=== PATIENT | male | born 1965 | race Caucasian/White ===

== ENCOUNTER 2017-03-04 10:43 | Emergency (ER) | payer MEDICAID ==
--- NOTE | 2017-03-04 11:59 | Emergency Department Report ---
Entered by DANIEL LUCIANO, acting as scribe for BERNIE LUNA NP. Chief Complaint: Abdominal Pain Stated Complaint: ABD PAIN Time Seen by Provider: 03/04/17 11:51 - HPI History of Present Illness: 52 year old male who is non-toxic, in no acute distress, non ill appearing presents with c/o right lower abdominal pain that began 3 days ago. Describes pain as sharp, that improved to a 8/10 after analgesic prior to arrival. Reports associated N/V, subjective fever, chills. Denies epigastric pain, chest pain, SOB. - ROS Review of Systems: Reports subjective fever, chills, right lower abdominal pain, N/V. Denies epigastric pain, chest pain, SOB. - Exam Vital Signs: Vital Signs 03/04/17 11:37 Temperature 99.2 F Pulse Rate 93 H Respiratory 18 Rate Blood Pressure 136/90 O2 Sat by Pulse 100 Oximetry Physical Exam: Constitutional: Non-toxic, NAD. Abdomen: Abdomen is non-distended, soft with tenderness to palpation right lower quadrant. Positive McBurney's point tenderness. Negative Psoas sign. Negative Vaca sign. MSE screening note: Focused history and physical exam performed. Due to findings the following was ordered: amylase, lipase, CBC, CMP, UA, CT A/ P w/ contrast ED Disposition for MSE Condition: Stable This documentation as recorded by the scribe,DANIEL LUCIANO,accurately reflects the service I personally performed and the decisions made by ,BERNIE LUNA, VANDANA.
[2017-03-04 12:23] LABS: Basophils % (Auto) 0.4 % (0.0-1.8); Eosinophils % (Auto) 0.6 % (0.0-4.3); Hematocrit 38.2 % (35.5-45.6); Hemoglobin 12.9 gm/dl (11.8-15.2); Mean Corpuscular HGB Conc 34 % (32-34); Mean Corpuscular Hemoglobin 32 pg (28-32); Mean Corpuscular Volume 95 fl (84-94); Platelet Count 270 K/mm3 (140-440); Red Blood Count 4.02 M/mm3 (3.65-5.03); Red Cell Distribution Width 12.8 % (13.2-15.2); White Blood Count 11.4 K/mm3 (4.5-11.0)
[2017-03-04 12:40] LABS: Alanine Aminotransferase 20 units/L (7-56); Albumin 4.4 g/dL (3.9-5); Albumin/Globulin Ratio 1.8 %; Alkaline Phosphatase 83 units/L (35-129); Amylase 37 units/L (27-131); Anion Gap 17 mmol/L; BUN/Creatinine Ratio 12.22; Blood Urea Nitrogen 11 mg/dL (9-20); Calcium 9.2 mg/dL (8.4-10.2); Carbon Dioxide 23 mmol/L (22-30); Glucose 111 mg/dL (75-100); Lipase 27 units/L (13-60); Potassium 3.9 mmol/L (3.6-5.0); Sodium 136 mmol/L (137-145); Total Protein 6.8 g/dL (6.3-8.2)
[2017-03-04] MEDS ORDERED: NACL 0.9% 1000 ML 1,000 ML IV ONE (17:24)
[2017-03-04] MEDS ORDERED: MORPHINE IV ONE (17:24)
--- NOTE | 2017-03-04 17:31 | Emergency Department Report ---
HPI - General Chief Complaint: Abdominal Pain Time Seen by Provider: 03/04/17 17:23 - HPI HPI: This is a 52-year-old male who presents to the emergency department with complaint of a 4 day history of right lower quadrant abdominal pain. It is associated with some nausea without vomiting, chills, subjective fever. The patient has been taking acetaminophen with some transient relief. He denies any past medical history other than hypertension and high cholesterol. He has never had any surgeries. His primary care doctor is Dr. Saez. No recent travel or sick contacts at home. The pain worsens with intra-abdominal pressure such as trying to have a bowel movement while sitting on the toilet. ED Past Medical Hx - Past Medical History Hx Hypertension: Yes Additional medical history: elevated cholestorol - Surgical History Past Surgical History?: No - Social History Smoking Status: Never Smoker Substance Use Type: None - Medications Home Medications: Home Medications Medication Instructions Recorded Confirmed Last Taken Type Ciprofloxacin HCl [Ciprofloxacin 500 mg PO BID #20 tablet 03/04/17 Unknown Rx TAB] FLUoxetine HCL [FLUoxetine] 40 mg PO QAM 03/04/17 03/04/17 Unknown History Fenofibrate [Tricor] 48 mg PO QAM 03/04/17 03/04/17 Unknown History HYDROcodone/APAP 5-325 [[place] 1 each PO Q6HR PRN #10 tablet 03/04/17 Unknown Rx 5/325] Metoprolol [Lopressor TAB] 25 mg PO QAM 03/04/17 03/04/17 Unknown History metroNIDAZOLE [Flagyl] 500 mg PO Q12HR #14 tab 03/04/17 Unknown Rx ED Review of Systems ROS: Stated complaint: ABD PAIN Other details as noted in HPI Comment: All other systems reviewed and negative Constitutional: chills, fever (subjective) Eyes: denies: eye pain, eye discharge, vision change ENT: denies: ear pain, throat pain Respiratory: no symptoms reported Cardiovascular: denies: chest pain, palpitations Gastrointestinal: abdominal pain, nausea. denies: vomiting Genitourinary: denies: urgency, dysuria Musculoskeletal: denies: back pain, joint swelling, arthralgia Skin: denies: rash, lesions Neurological: denies: headache, weakness, paresthesias Physical Exam - Physical Exam Vital Signs: Vital Signs 03/04/17 11:37 Temperature 99.2 F Pulse Rate 93 H Respiratory 18 Rate Blood Pressure 136/90 O2 Sat by Pulse 100 Oximetry Physical Exam: GENERAL: The patient is well-developed well-nourished. HEENT: Normocephalic. Atraumatic. Extraocular motions are intact. Patient has moist mucous membranes. Pupils equal reactive to light bilaterally. NECK: Supple. Trachea is midline. CHEST/LUNGS: Clear to auscultation. There is no respiratory distress noted. HEART/CARDIOVASCULAR: Regular. There is no tachycardia. There is no gallop rub or murmur. ABDOMEN: Abdomen is soft. There is tenderness to palpation to the right lower quadrant of the abdomen. No guarding or rebound tenderness. No peritoneal signs with heel strike. Patient has normal bowel sounds. There is no abdominal distention. SKIN: Skin is warm and dry. NEURO: The patient is awake, alert, and oriented. The patient is cooperative. The patient has no focal neurologic deficits. The patient has normal speech. MUSCULOSKELETAL: There is no tenderness or deformity. There is no limitation range of motion. There is no evidence of acute injury. ED Course Vital Signs 03/04/17 11:37 Temperature 99.2 F Pulse Rate 93 H Respiratory 18 Rate Blood Pressure 136/90 O2 Sat by Pulse 100 Oximetry ED Medical Decision Making - Lab Data Result diagrams: 03/04/17 12:01 03/04/17 12:01 - Radiology Data Radiology results: report reviewed CT of the abdomen and pelvis with IV contrast shows findings that are consistent with acute diverticulitis of the cecum that is near the appendix but does not appear to involve the appendix. There is no evidence of gross perforation or abscess formation. No evidence of bowel obstruction. - Medical Decision Making 52-year-old male presents with 3-4 day history of right lower quadrant abdominal pain. There is some subjective fever and nausea without vomiting. Patient's labs are mostly unremarkable. There is a mild leukocytosis but no electrolyte abnormalities, renal insufficiency and the patient has normal belly labs including bilirubin, lipase and LFTs. Physical exam the patient does have moderate tenderness to palpation to the right lower quadrant of his abdomen. A CT of the abdomen and pelvis with IV contrast was done to rule out appendicitis. There was no appendicitis but cecal diverticulitis is found. Patient was given some IV Levaquin and Flagyl here. Since the patient has reasonable labs, no fever here, improvement with pain medication, I feel that the patient would do well with an initial outpatient attempt at treatment. He will go home on a 1 week history of Flagyl, ten-day history of Cipro and will be given pain medication. He will also be given a referral for a purchasing director and encouraged to follow up with his primary care doctor, Dr. Saez. He does to return to the ER with any worsening of his abdominal pain, intractable fever or vomiting or any acute distress. - Differential Diagnosis appendicitis, diverticulitis, colitis, malignancy Critical Care Time: No Critical care attestation.: If time is entered above; I have spent that time in minutes in the direct care of this critically ill patient, excluding procedure time. ED Disposition Clinical Impression: Diverticulitis Qualifiers: Diverticulitis site: unspecified part of intestinal tract Diverticulitis bleeding: without bleeding Diverticulitis complication: without perforation or abscess Qualified Code(s): K57.92 - Diverticulitis of intestine, part unspecified, without perforation or abscess without bleeding Abdominal pain Qualifiers: Abdominal location: right lower quadrant Qualified Code(s): R10.31 - Right lower quadrant pain Disposition: DISCHARGED TO HOME OR SELFCARE Is pt being admited?: No Condition: Stable Instructions: Diverticulitis (ED), Diverticulitis Diet (ED) Additional Instructions: Please follow-up with your primary care doctor in the next few days. I given you a referral for a local purchasing director, Dr. Vasquez, in order to follow- up regarding your diverticulitis. Return to the emergency department with any intractable fever, intractable abdominal pain or any acute distress. One of the antibiotics that you have been prescribed, Flagyl, has a very bad reaction with alcohol. Do not drink any alcohol on these medications or you can expect excessive nausea, vomiting and discomfort. You've been prescribed a medication that is sedating. Therefore this medication cannot be mixed with alcohol, or taken prior to driving, working, or being responsible for children. Prescriptions: Ciprofloxacin HCl [Ciprofloxacin TAB] 500 mg PO BID #20 tablet HYDROcodone/APAP 5-325 [[place] 5/325] 1 each PO Q6HR PRN #10 tablet PRN Reason: Pain metroNIDAZOLE [Flagyl] 500 mg PO Q12HR #14 tab Referrals: BLAS SAEZ MD [Primary Care Provider] - 3-5 Days GALLIOT VASQUEZ MD [Staff Physician] - 3-5 Days Time of Disposition: 20:57 Print Language: NEPALI
--- NOTE | 2017-03-04 19:17 | Cat Scan Report ---
FINAL REPORT EXAM: CT ABDOMEN PELVIS W CON HISTORY: pain TECHNIQUE: Dynamic helical CT scan through the abdomen and pelvis during and again after intravenous injection of iodinated contrast. Images are reconstructed in the sagittal and coronal planes. Oral contrast was not given. PRIORS: None. FINDINGS: Images through the lung bases show calcified granulomas in the right lower lobe. There is mild bibasilar dependent subsegmental atelectasis. There is inflammatory fat edema posterior to the cecum surrounding a cecal diverticulum consistent with acute diverticulitis. The inflamed area is approximately 2 cm proximal to the base of the appendix. The appendix appears normal. There are a few mildly enlarged pericolonic lymph nodes, likely reactive in nature. There is diffuse colonic diverticulosis. There is no evidence of gross perforation or abscess formation. Small bowel loops are nondilated. The liver, gallbladder, pancreas, spleen and adrenal glands appear normal. There is a 1.6 x 1.0 cm cyst in the right kidney. Otherwise, the right kidney appears normal. The left kidney appears normal. The pelvic organs appear grossly normal. The stomach appears grossly within normal limits. The abdominal aorta has a normal diameter. The bones and subcutaneous soft tissues are unremarkable for age. IMPRESSION: 1. Findings are consistent with acute diverticulitis of the cecum that is near the appendix but does not appear to involve the appendix. There is no evidence of gross perforation or abscess formation. 2. There is no evidence of bowel obstruction. 3. 4. 5. 6.
[2017-03-04] MEDS ORDERED: LEVAQUIN 500MG/100ML 500 MG/100 ML BAG IV ONE (19:28)
[2017-03-04] MEDS ORDERED: MORPHINE ONE (19:34)
[2017-03-04] MEDS ORDERED: FLAGYL 500 MG/100 ML 500 MG/100 ML BAG IV SCH (20:00)
[2017-03-04 20:11] LABS: Bilirubin,Urine NEG (Negative); Blood,Urine SM (Negative); Ketones,Urine NEG (Negative); Leukocyte Esterase,Urine NEG (Negative); Nitrite,Urine NEG (Negative); Protein,Urine <15 mg/dL mg/dL (Negative); Urobilinogen,Urine < 2.0 mg/dL (<2.0)
[2017-03-04 20:58] VITALS: BP 127/84
[2017-03-04] MEDS ORDERED: FLAGYL PO ONE ×2 (21:08→21:09)
== END 2017-03-04 21:13 | disposition home or self-care (01) ==
LOC: ED 10:43
DX: K57.92 Diverticulitis of intestine, part unspecified, without perforation or abscess without bleeding (principal); I10 Essential (primary) hypertension
CPT/HCPCS: 36415; 74177; 80053; 81001; 82150; 83690; 85025; 96365; 96375; 99284; J1956; J2270; J7030; Q9967

== ENCOUNTER 2018-04-20 20:45 | Emergency (ER) | payer MEDICAID ==
[2018-04-20] MEDS ORDERED: ASPIRIN PO ONE (21:43)
[2018-04-20 22:00] LABS: Basophils % (Auto) 0.4 % (0.0-1.8); Eosinophils # (Auto) 0.3 K/mm3 (0.0-0.4); Eosinophils % (Auto) 2.5 % (0.0-4.3); Hematocrit 38.7 % (35.5-45.6); Hemoglobin 13.6 gm/dl (11.8-15.2); Lymphocytes # (Auto) 0.8 K/mm3 (1.2-5.4); Lymphocytes % (Auto) 7.8 % (13.4-35.0); Mean Corpuscular HGB Conc 35 % (32-34); Mean Corpuscular Hemoglobin 33 pg (28-32); Mean Corpuscular Volume 95 fl (84-94); Monocytes # (Auto) 0.7 K/mm3 (0.0-0.8); Monocytes % (Auto) 6.4 % (0.0-7.3); Platelet Count 270 K/mm3 (140-440); Red Blood Count 4.07 M/mm3 (3.65-5.03); Red Cell Distribution Width 12.9 % (13.2-15.2)
[2018-04-20 22:45] LABS: BUN/Creatinine Ratio 14; Blood Urea Nitrogen 11 mg/dL (9-20); Calcium 9.3 mg/dL (8.4-10.2); Hemolysis Index 11
[2018-04-21 04:25] VITALS: BP 132/78
== END 2018-04-21 04:30 | disposition left against medical advice (07) ==
LOC: ED 20:45
DX: R68.84 Jaw pain (principal); Z53.21 Procedure and treatment not carried out due to patient leaving prior to being seen by health care provider
CPT/HCPCS: 36415; 80048; 84484; 85025; 93005; 93010

== ENCOUNTER 2021-03-21 08:39 | Inpatient (IN) | payer MEDICAID ==
--- NOTE | 2021-03-21 08:46 | Event Note ---
ED Screening Note Date of service: 03/21/21 Time: 08:45 ED Screening Note: Patient complains of sudden onset of abdominal pain and vomiting Denies hematemesis/coffee-ground emesis or diarrhea Admits to sweats and chills No cough or chest pain per patient This initial assessment/diagnostic orders/clinical plan/treatment(s) is/are subject to change based on patients health status, clinical progression and re- assessment by fellow clinical providers in the ED. Further treatment and workup at subsequent clinical providers discretion. Patient/guardian urged not to elope from the ED as their condition may be serious if not clinically assessed and managed. Initial orders include: Labs
[2021-03-21 09:20] LABS: Hematocrit 43.7 % (35.5-45.6); Mean Corpuscular HGB Conc 34 % (32-34); Mean Corpuscular Volume 94 fl (84-94); Platelet Count 303 K/mm3 (140-440); Red Blood Count 4.63 M/mm3 (3.65-5.03)
[2021-03-21 09:43] LABS: Alanine Aminotransferase 35 units/L (7-56); Albumin 4.7 g/dL (3.9-5); BUN/Creatinine Ratio 14; Blood Urea Nitrogen 13 mg/dL (9-20); Calcium 9.8 mg/dL (8.4-10.2); Hemolysis Index 17
[2021-03-21 09:56] LABS: Platelet Estimate Consistent w Auto; RBC Morphology Normal; Total Cells Counted 100
[2021-03-21] MEDS ORDERED: SODIUM CHLORIDE 0.9% 1000 ML 1,000 ML IV ONE (10:01)
[2021-03-21] MEDS ORDERED: MORPHINE 4 MG/1 ML INJ IV ONE (10:01)
[2021-03-21] MEDS ORDERED: ONDANSETRON 4 MG/2 ML INJ IV ONE (10:01)
--- NOTE | 2021-03-21 10:40 | Emergency Department Report ---
HPI - General Chief Complaint: Abdominal Pain Time Seen by Provider: 03/21/21 08:45 - HPI HPI: This is a 56-year-old male presents to the emergency department with a complaint of mid to upper abdominal pain, nausea and vomiting, chills and sweats, that has been going on since about 3:30 AM this morning. Because the vomiting the patient has not taken anything for symptoms prior to presentation. He has a past medical history of hyperlipidemia and hypertension. No recent travel or sick contacts at home. The abdominal pain is currently 9 of 10 in intensity. No known aggravating or alleviating factors. His primary care physician is Dr. Andrade. ED Past Medical Hx - Past Medical History Hx Hypertension: Yes Additional medical history: elevated cholestorol - Social History Smoking Status: Never Smoker Substance Use Type: None - Medications Home Medications: Home Medications Medication Instructions Recorded Confirmed Last Taken Type Diltiazem 24Hr ER (Xr) 120 mg PO DAILY 03/21/21 03/21/21 Unknown History Simvastatin 40 mg PO DAILY 03/21/21 03/21/21 Unknown History ED Review of Systems ROS: Stated complaint: ABD PAIN Other details as noted in HPI Comment: All other systems reviewed and negative Constitutional: chills, diaphoresis. denies: fever Eyes: denies: eye pain, vision change ENT: denies: ear pain, throat pain Respiratory: denies: cough, shortness of breath Cardiovascular: denies: chest pain, palpitations Gastrointestinal: abdominal pain, nausea, vomiting Genitourinary: denies: dysuria, discharge Musculoskeletal: denies: back pain, arthralgia Skin: denies: rash, lesions Neurological: denies: headache, weakness Physical Exam - Physical Exam Vital Signs: Vital Signs 03/21/21 08:44 Temperature 98.9 F Pulse Rate 82 Respiratory 20 Rate Blood Pressure 139/102 O2 Sat by Pulse 99 Oximetry Physical Exam: GENERAL: The patient is well-developed well-nourished. HENT: Normocephalic. Atraumatic. Patient has moist mucous membranes. EYES: Extraocular motions are intact. NECK: Supple. Trachea is midline. CHEST/LUNGS: Clear to auscultation. There is no respiratory distress noted. HEART/CARDIOVASCULAR: Regular. There is no tachycardia. There is no murmur. ABDOMEN: Abdomen is soft. Mid to upper abdominal tenderness to palpation. No guarding. Patient has normal bowel sounds. SKIN: Skin is warm and dry. NEURO: The patient is awake, alert, and oriented. The patient is cooperative. The patient has no focal neurologic deficits. Normal speech. MUSCULOSKELETAL: There is no tenderness or deformity. There is no limitation range of motion. ED Course Vital Signs 03/21/21 08:44 Temperature 98.9 F Pulse Rate 82 Respiratory 20 Rate Blood Pressure 139/102 O2 Sat by Pulse 99 Oximetry - Consultations Consultation #1: 03/21/21 11:30 I spoke to the general surgeon on-call, Dr. Powers. He has requested the patient be made n.p.o., receive an NG tube while still in the emergency department, and be admitted to the hospitalist service. He will consult on this patient. ED Medical Decision Making - Lab Data Result diagrams: 03/21/21 09:07 03/21/21 09:07 Lab Results 03/21/21 03/21/21 Range/Units 09:07 09:07 WBC 12.8 H (4.5-11.0) K/mm3 RBC 4.63 (3.65-5.03) M/mm3 Hgb 15.0 (11.8-15.2) gm/dl Hct 43.7 (35.5-45.6) % MCV 94 (84-94) fl MCH 33 H (28-32) pg MCHC 34 (32-34) % RDW 13.0 L (13.2-15.2) % Plt Count 303 (140-440) K/mm3 Add Manual Diff Complete Total Counted 100 Seg Neutrophils % Product Marketing Director Seg Neuts % (Manual) 93.0 H (40.0-70.0) % Lymphocytes % (Manual) 3.0 L (13.4-35.0) % Monocytes % (Manual) 4.0 (0.0-7.3) % Nucleated RBC % Not Reportable Seg Neutrophils # Man 11.9 H (1.8-7.7) K/mm3 Band Neutrophils # 0.0 K/mm3 Lymphocytes # (Manual) 0.4 L (1.2-5.4) K/mm3 Abs React Lymphs (Man) 0.0 K/mm3 Monocytes # (Manual) 0.5 (0.0-0.8) K/mm3 Eosinophils # (Manual) 0.0 (0.0-0.4) K/mm3 Basophils # (Manual) 0.0 (0.0-0.1) K/mm3 Metamyelocytes # 0.0 K/mm3 Myelocytes # 0.0 K/mm3 Promyelocytes # 0.0 K/mm3 Blast Cells # 0.0 K/mm3 WBC Morphology Not Reportable Hypersegmented Neuts Not Reportable Hyposegmented Neuts Not Reportable Hypogranular Neuts Not Reportable Smudge Cells Not Reportable Toxic Granulation Not Reportable Toxic Vacuolation Not Reportable Dohle Bodies Not Reportable Pelger-Huet Anomaly Not Reportable Pk Rods Not Reportable Platelet Estimate Consistent w auto Clumped Platelets Not Reportable Plt Clumps, EDTA Not Reportable Large Platelets Not Reportable Giant Platelets Not Reportable Platelet Satelliting Not Reportable Plt Morphology Comment Not Reportable RBC Morphology Normal Dimorphic RBCs Not Reportable Polychromasia Not Reportable Hypochromasia Not Reportable Poikilocytosis Not Reportable Anisocytosis Not Reportable Microcytosis Not Reportable Macrocytosis Not Reportable Spherocytes Not Reportable Pappenheimer Bodies Not Reportable Sickle Cells Not Reportable Target Cells Not Reportable Tear Drop Cells Not Reportable Ovalocytes Not Reportable Helmet Cells Not Reportable [place] Bodies Not Reportable [place] Rings Not Reportable [place] Cells Not Reportable Bite Cells Not Reportable Crenated Cell Not Reportable Elliptocytes Not Reportable Acanthocytes (Spur) Not Reportable Rouleaux Not Reportable Hemoglobin C Crystals Not Reportable Schistocytes Not Reportable Malaria parasites Not Reportable Thomas Bodies Not Reportable Hem Pathologist Commnt No Sodium 141 (137-145) mmol/L Potassium 3.6 (3.6-5.0) mmol/L Chloride 99.4 (98-107) mmol/L Carbon Dioxide 22 (22-30) mmol/L Anion Gap 23 mmol/L BUN 13 (9-20) mg/dL Creatinine 0.9 (0.8-1.3) mg/dL Estimated GFR > 60 ml/min BUN/Creatinine Ratio 14 % Glucose 138 H (75-100) mg/dL Calcium 9.8 (8.4-10.2) mg/dL Total Bilirubin 0.70 (0.1-1.2) mg/dL AST 24 (5-40) units/L ALT 35 (7-56) units/L Alkaline Phosphatase 106 (35-129) units/L Total Protein 7.9 (6.3-8.2) g/dL Albumin 4.7 (3.9-5) g/dL Albumin/Globulin Ratio 1.5 % Lipase 30 (13-60) units/L - Radiology Data Radiology results: report reviewed CT ABDOMEN AND PELVIS WITH CONTRAST HISTORY: MAIN. Mid to upper abdominal pain with nausea and vomiting for the past day COMPARISON: None. TECHNIQUE: CT images of the abdomen and pelvis were obtained following administration of intravenous contrast. All CT scans at this location are performed using CT dose reduction for ALARA by means of automated exposure control. CONTRAST: 100 ml of intravenous contrast administered. FINDINGS: Lungs/bones: There is minimal biba silar atelectasis with otherwise clear lungs. No acute osseous abnormality identified. Abdomen/pelvis: There are abnormal appearing mid jejunal bowel loops which are dilated and primarily fluid-filled with several areas of angulation and bowel wall thickening/enhancement. There is no single dominant transition point, rather there is a gentle transition in the midabdomen at the level of the kidneys. No free air or abscess formation to suggest a perforation. There is hepatic steatosis with no focal mass. The gallbladder, spleen, pancreas, adrenals, right kidney, and stomach appear normal. Urinary bladder and prostate are normal with no pelvic free fluid. There are occasional colonic diverticula with no acute inflammatory change identified. The appendix is normal. Terminal ileum shows mild enhancement similar to the remaining distal small bowel but there is no dilatation. IMPRESSION: 1. Abnormal appearance of the mid jejunum as outlined above may be seen with a partial small bowel obstruction. - Medical Decision Making This patient presents to the emergency department with a complaint of abdominal pain, nausea and vomiting has been going on since about 3:30 in the morning. On examination she does have reproducible mid to upper abdominal tenderness to palpation. He was given IV fluid resuscitation, IV antiemetics and a dose of IV analgesia. Labs have been mostly unremarkable including CBC, metabolic panel, and urinalysis. He had a CT scan of the abdomen and pelvis with IV contrast that shows concern for a partial bowel obstruction in the mid jejunum. General surgery was contacted and consulted. And a nasogastric tube was placed and then was placed on low intermittent suction. The patient was accepted for admission by the hospitalist, Dr. Gambino. Critical Care Time: No Critical care attestation.: If time is entered above; I have spent that time in minutes in the direct care o f this critically ill patient, excluding procedure time. ED Disposition Clinical Impression: Small bowel obstruction Disposition: - OP ADMIT IP TO THIS HOSP Is pt being admited?: Yes Condition: Serious Time of Disposition: 15:07
--- NOTE | 2021-03-21 10:58 | Cat Scan Report ---
CT ABDOMEN AND PELVIS WITH CONTRAST HISTORY: MAIN. Mid to upper abdominal pain with nausea and vomiting for the past day COMPARISON: None. TECHNIQUE: CT images of the abdomen and pelvis were obtained following administration of intravenous contrast. All CT scans at this location are performed using CT dose reduction for ALARA by means of automated exposure control. CONTRAST: 100 ml of intravenous contrast administered. FINDINGS: Lungs/bones: There is minimal bibasilar atelectasis with otherwise clear lungs. No acute osseous abn ormality identified. Abdomen/pelvis: There are abnormal appearing mid jejunal bowel loops which are dilated and primarily fluid-filled with several areas of angulation and bowel wall thickening/enhancement. There is no sin gle dominant transition point, rather there is a gentle transition in the midabdomen at the level of the kidneys. No free air or abscess formation to suggest a perforation. There is hepatic steatosis with no focal mass. The gallbladder, spleen, pancreas, adrenals, right kid martha, and stomach appear normal. Urinary bladder and prostate are normal with no pelvic free fluid. There are occasional colonic diver ticula with no acute inflammatory change identified. The appendix is normal. Terminal ileum shows mil d enhancement similar to the remaining distal small bowel but there is no dilatation. IMPRESSION: 1. Abnormal appearance of the mid jejunum as outlined above may be seen with a partial small bowel ob struction. Signer Name: Jose Armando Gonzalez MD Signed: 03/21/2021 10:53 AM Workstation Name: [id number]
[2021-03-21] MEDS ORDERED: ACETAMINOPHEN 325 MG TAB PO PRN (11:41)
[2021-03-21] MEDS ORDERED: ALBUTEROL 2.5 MG/3 ML NEBU IH PRN (11:41)
--- NOTE | 2021-03-21 11:44 | History and Physical Report ---
History of Present Illness Chief complaint: My stomach hurts History of present illness: 56 YO Male with HLD, HTN presents to ED for evaluation. Patient reports "my stomach hurts". Patient states that he has experienced abdominal pain that began at approximately 0330 hrs. Patient states that pain awakened him from sleep. Patient states that pain is 9/10, constant, without aggravating or alleviating factors. Patient acknowledges nausea, as well as multiple episodes of vomiting. Patient transported via private vehicle to [facility] for further care and evaluation of the aforementioned symptoms. The patient was seen and evaluated in the emergency department. All lab and imaging studies reviewed. Patient underwent CT scan of the abdomen and pelvis and was found to have evidence of a partial small bowel obstruction as well as laboratory findings consistent with systemic inflammatory response syndrome. Patient admitted to surgical floor and initiated on bowel rest as well as IV fluid resuscitation therapy. Surgical team consulted in ED. Patient is pending surgical evaluation/intervention at this time. Patient denies fever, chills, chest pain, palpitation, productive cough, skin rash, recent ill contact, ingestion of food/water from new or different sources, trauma, or known exposure to COVID-19. No prior admission for review. All medication listed at time of admission has been reconciled. Past History Past Medical History: hypertension, hyperlipidemia Past Surgical History: No surgical history, Other (Reviewed) Social history: . denies: smoking, alcohol abuse, prescription drug abuse Family history: diabetes, hypertension Medications and Allergies Allergies Allergy/AdvReac Type Severity Reaction Status Date / Time No Known Allergies Allergy Verified 03/21/21 08:46 Home Medications Medication Instructions Recorded Confirmed Last Taken Type Ciprofloxacin HCl [Ciprofloxacin 500 mg PO BID #20 tablet 03/04/17 Unknown Rx TAB] FLUoxetine HCL [FLUoxetine] 40 mg PO QAM 03/04/17 03/04/17 Unknown History Fenofibrate [Tricor] 48 mg PO QAM 03/04/17 03/04/17 Unknown History HYDROcodone/APAP 5-325 [[place] 1 each PO Q6HR PRN #10 tablet 03/04/17 Unknown Rx 5/325] Metoprolol [Lopressor TAB] 25 mg PO QAM 03/04/17 03/04/17 Unknown History metroNIDAZOLE [Flagyl] 500 mg PO Q12HR #14 tab 03/04/17 Unknown Rx Active Meds: Active Medications Acetaminophen (Acetaminophen 325 Mg Tab) 650 mg PO Q4H PRN PRN Reason: Pain MILD(1-3)/Fever >100.5/BILLS Albuterol (Albuterol 2.5 Mg/3 Ml Nebu) 2.5 mg IH Q4HRT PRN PRN Reason: Shortness Of Breath Fenofibrate (Fenofibrate 48 Mg Tab) 48 mg PO QAM [facility] Sodium Chloride (Nacl 0.9% 1000 Ml) 1,000 mls @ 250 mls/hr IV ONCE ONE Stop: 03/21/21 14:00 Last Admin: 03/21/21 10:25 Dose: 250 mls/hr Documented by: Metoprolol Tartrate (Metoprolol Tartrate 25 Mg Tab) 25 mg PO QAM [facility] Miscellaneous Medication (Fluoxetine Hcl [Fluoxetine]) 40 mg PO QAM [facility] Morphine Sulfate (Morphine 4 Mg/1 Ml Inj) 2 mg IV Q6H PRN PRN Reason: Pain , Severe (7-10) Ondansetron HCl (Ondansetron 4 Mg/2 Ml Inj) 4 mg IV Q8H PRN PRN Reason: Nausea And Vomiting Sodium Chloride (Sodium Chloride 0.9% 10 Ml Flush Syringe) 10 ml IV BID MUSHTAQ Sodium Chloride (Sodium Chloride 0.9% 10 Ml Flush Syringe) 10 ml IV PRN PRN PRN Reason: LINE FLUSH Review of Systems Constitutional: no weight loss, no weight gain, no fever Ears, nose, mouth and throat: no ear pain, no ear discharge, no tinnitis, no decreased hearing, no nose pain, no nasal congestion Cardiovascular: no palpitations, no rapid/irregular heart beat, no syncope, no l ightheadedness Respiratory: no cough, no cough with sputum, no excessive sputum Gastrointestinal: abdominal pain, nausea, vomiting, no diarrhea, no BRBPR, no melena, no hematochezia, no loss of appetite Genitourinary Male: no dysuria, no hematuria, no flank pain, no discharge, no urinary frequency, no urinary hesitancy Rectal: no pain, no incontinence, no bleeding Musculoskeletal: no arm numbness/tingling, no shooting leg pain, no leg numbness/tingling, no redness of joints Integumentary: no rash, no pruritis, no redness, no sores Neurological: no head injury, no parathesias, no numbness, no tingling, no syncope, no tremors Psychiatric: no anxiety, no memory loss, no change in sleep habits, no hypersomnia, no change in libido, no suicidal ideation Endocrine: no cold intolerance, no polyphagia, no polydipsia, no polyuria Hematologic/Lymphatic: no easy bruising, no easy bleeding, no lymphedema Allergic/Immunologic: no allergic rhinitis, no angioedema Exam - Constitutional Vitals: Temp Pulse Resp BP Pulse Ox 98.9 F 82 20 139/102 99 03/21/21 08:44 03/21/21 08:44 03/21/21 08:44 03/21/21 08:44 03/21/21 08:44 General appearance: Present: mild distress - EENT Eyes: Present: PERRL ENT: hearing intact, clear oral mucosa - Neck Neck: Present: supple, normal ROM - Respiratory Respiratory effort: normal Respiratory: bilateral: CTA - Cardiovascular Heart Sounds: Present: S1 & S2. Absent: rub, click - Extremities Extremities: pulses symmetrical, No edema Peripheral Pulses: within normal limits - Abdominal General gastrointestinal: Present: soft, non-tender, tender, normal bowel sounds . Absent: hepatomegaly, splenomegaly, mass, hernia Localized gastrointestinal: tender: diffuse Male genitourinary: Present: normal - Integumentary Integumentary: Present: clear, warm, dry - Musculoskeletal Musculoskeletal: gait normal, strength equal bilaterally - Psychiatric Psychiatric: appropriate mood/affect, intact judgment & insight - Neurologic Neurologic: CNII-XII intact, moves all extremities Results - Labs CBC & Chem 7: 03/21/21 09:07 03/21/21 09:07 Labs: Abnormal lab results 03/21/21 03/21/21 Range/Units 09:07 09:07 WBC 12.8 H (4.5-11.0) K/mm3 MCH 33 H (28-32) pg RDW 13.0 L (13.2-15.2) % Seg Neuts % (Manual) 93.0 H (40.0-70.0) % Lymphocytes % (Manual) 3.0 L (13.4-35.0) % Seg Neutrophils # Man 11.9 H (1.8-7.7) K/mm3 Lymphocytes # (Manual) 0.4 L (1.2-5.4) K/mm3 Glucose 138 H (75-100) mg/dL Assessment and Plan - Patient Problems (1) Small bowel obstruction Current Visit: Yes Status: Acute Plan to address problem: Bowel rest, IV fluid resuscitation therapy, CT scan abdomen and pelvis, surgery team consulted. Patient is pending surgical intervention. NG tube as per surgical team. (2) SIRS (systemic inflammatory response syndrome) Current Visit: Yes Status: Acute Plan to address problem: Empirical IV antibiotic therapy, IV fluid resuscitation therapy, CBC, repeat CBC in a.m. (3) Hypertension Current Visit: Yes Status: Acute Qualifiers: Hypertension type: essential hypertension Qualified Code(s): I10 - Essential (primary) hypertension Plan to address problem: Monitor blood pressure every shift, continue Medical management (4) Hyperlipidemia Current Visit: Yes Status: Acute Qualifiers: Hyperlipidemia type: mixed hyperlipidemia Qualified Code(s): E78.2 - Mixed hyperlipidemia Plan to address problem: Low-cholesterol diet, supportive care. (5) DVT prophylaxis Current Visit: Yes Status: Acute Plan to address problem: SCD to bilateral lower extremities while in bed, patient is ambulatory.
[2021-03-21 11:59] LABS: Amorphous Crystals,Urine Few; Bilirubin,Urine NEG (Negative); Blood,Urine NEG (Negative); Color,Urine Yellow (Yellow); Mucus,Urine 3+ /HPF; Urobilinogen,Urine < 2.0 mg/dL (<2.0)
[2021-03-21] MEDS ORDERED: LIDOCAINE VISCOUS 2% 15 ML ORAL LIQD PO ONE (13:00)
--- NOTE | 2021-03-21 13:32 | Consultation ---
History of Present Illness Consult date: 03/21/21 Reason for consult: abdominal pain - History of present illness History of present illness: 56 yo male with onset of epigastric pain, nausea and vomiting earlier this morning. He denies melena, hematochezia, hematemesis or prior h/o similar pain. He has never had abdominal surgery and denies any h/o hernia. No contacts with similar symptoms. Past History Past Medical History: hypertension, hyperlipidemia Medications and Allergies Allergies Allergy/AdvReac Type Severity Reaction Status Date / Time No Known Allergies Allergy Verified 03/21/21 08:46 Home Medications Medication Instructions Recorded Confirmed Last Taken Type Diltiazem 24Hr ER (Xr) 120 mg PO DAILY 03/21/21 03/21/21 Unknown History Simvastatin 40 mg PO DAILY 03/21/21 03/21/21 Unknown History Active Meds: Active Medications Acetaminophen (Acetaminophen 325 Mg Tab) 650 mg PO Q4H PRN PRN Reason: Pain MILD(1-3)/Fever >100.5/BILLS Albuterol (Albuterol 2.5 Mg/3 Ml Nebu) 2.5 mg IH Q4HRT PRN PRN Reason: Shortness Of Breath Fenofibrate (Fenofibrate 48 Mg Tab) 48 mg PO QAM MUSHTAQ Fluoxetine HCl (Fluoxetine 20 Mg Cap) 40 mg PO QAM MUSHTAQ Sodium Chloride (Nacl 0.9% 1000 Ml) 1,000 mls @ 250 mls/hr IV ONCE ONE Stop: 03/21/21 14:00 Last Admin: 03/21/21 10:25 Dose: 250 mls/hr Documented by: Metoprolol Succinate (Metoprolol Succinate Xl 25 Mg Tab) 25 mg PO QAM MUSHTAQ Morphine Sulfate (Morphine 4 Mg/1 Ml Inj) 2 mg IV Q6H PRN PRN Reason: Pain , Severe (7-10) Ondansetron HCl (Ondansetron 4 Mg/2 Ml Inj) 4 mg IV Q8H PRN PRN Reason: Nausea And Vomiting Sodium Chloride (Sodium Chloride 0.9% 10 Ml Flush Syringe) 10 ml IV BID MUSHTAQ Sodium Chloride (Sodium Chloride 0.9% 10 Ml Flush Syringe) 10 ml IV PRN PRN PRN Reason: LINE FLUSH Review of Systems All systems: negative (none) Exam Vital Signs Temp Pulse Resp BP Pulse Ox 98.9 F 82 20 139/102 99 03/21/21 08:44 03/21/21 08:44 03/21/21 08:44 03/21/21 08:44 03/21/21 08:44 - General physical appearance Positive: well developed, well nourished, no distress - Eyes Positive: PERRL, normal occular movement - ENT Positive: normal pinna, normal nares, normal mucosa, no hearing loss, no congestion - Neck Positive: no masses, no bruits, trachea midline, no venous distension - Respiratory Positive: normal expansion, normal respiratory effort, clear to auscultation - Cardiovascular Rhythm: regular Heart Sounds: Present: S1 & S2. Absent: rub, click - Extremities Extremities: no ischemia, pulses symmetrical, No edema - Breasts Breasts: normal, no mass, no skin changes - Abdomen Abdomen: Present: soft, bowel sounds normal. Absent: tender, distended Hernia: none - Genitourinary Male Genitourinary: normal Female Genitourinary: normal - Integumentary no rash, no growths, no abnormal pigmentation - Neurologic Neurologic: alert and oriented to time, place and person, motor strength and sensation are grossly intact - Musculoskeletal normal gait, normal posture - Psychiatric Psychiatric: appropriate mood/affect, intact judgment & insight Results - Labs 03/21/21 09:07 03/21/21 09:07 Abnormal lab results 03/21/21 03/21/21 03/21/21 Range/Units 09:07 09:07 Unknown WBC 12.8 H (4.5-11.0) K/mm3 MCH 33 H (28-32) pg RDW 13.0 L (13.2-15.2) % Seg Neuts % (Manual) 93.0 H (40.0-70.0) % Lymphocytes % (Manual) 3.0 L (13.4-35.0) % Seg Neutrophils # Man 11.9 H (1.8-7.7) K/mm3 Lymphocytes # (Manual) 0.4 L (1.2-5.4) K/mm3 Glucose 138 H (75-100) mg/dL Urine pH 8.0 H (5.0-7.0) Diabetes panel 03/21/21 Range/Units 09:07 Sodium 141 (137-145) mmol/L Potassium 3.6 (3.6-5.0) mmol/L Chloride 99.4 (98-107) mmol/L Carbon Dioxide 22 (22-30) mmol/L BUN 13 (9-20) mg/dL Creatinine 0.9 (0.8-1.3) mg/dL Glucose 138 H (75-100) mg/dL Calcium 9.8 (8.4-10.2) mg/dL AST 24 (5-40) units/L ALT 35 (7-56) units/L Alkaline Phosphatase 106 (35-129) units/L Total Protein 7.9 (6.3-8.2) g/dL Albumin 4.7 (3.9-5) g/dL Calcium panel 03/21/21 Range/Units 09:07 Calcium 9.8 (8.4-10.2) mg/dL Albumin 4.7 (3.9-5) g/dL Pituitary panel 03/21/21 Range/Units 09:07 Sodium 141 (137-145) mmol/L Potassium 3.6 (3.6-5.0) mmol/L Chloride 99.4 (98-107) mmol/L Carbon Dioxide 22 (22-30) mmol/L BUN 13 (9-20) mg/dL Creatinine 0.9 (0.8-1.3) mg/dL Glucose 138 H (75-100) mg/dL Calcium 9.8 (8.4-10.2) mg/dL Adrenal panel 03/21/21 Range/Units 09:07 Sodium 141 (137-145) mmol/L Potassium 3.6 (3.6-5.0) mmol/L Chloride 99.4 (98-107) mmol/L Carbon Dioxide 22 (22-30) mmol/L BUN 13 (9-20) mg/dL Creatinine 0.9 (0.8-1.3) mg/dL Glucose 138 H (75-100) mg/dL Calcium 9.8 (8.4-10.2) mg/dL Total Bilirubin 0.70 (0.1-1.2) mg/dL AST 24 (5-40) units/L ALT 35 (7-56) units/L Alkaline Phosphatase 106 (35-129) units/L Total Protein 7.9 (6.3-8.2) g/dL Albumin 4.7 (3.9-5) g/dL - Imaging CT scan - abdomen: report reviewed CT scan - pelvis: report reviewed Assessment and Plan - Patient Problems (1) Small bowel obstruction Current Visit: Yes Status: Acute Plan to address problem: 1) NG decompression, IVF, NPO, AXR and repeat CBC/BMP in the am 2) RUQ US
[2021-03-21] MEDS: ONDANSETRON 4 MG/2 ML INJ IV PRN (14:40)
[2021-03-21] MEDS: MORPHINE 4 MG/1 ML INJ IV PRN ×2 (14:40→21:32)
--- NOTE | 2021-03-21 16:47 | Ultrasound Report ---
ULTRASOUND ABDOMEN, LIMITED (RIGHT UPPER QUADRANT) INDICATION: epigastric pain, N/V. COMPARISON: None available. FINDINGS: Pancreas: Visualized portion shows no significant abnormality. Liver: Increased echogenicity within the liver Gallbladder: Normal. Bile ducts: Normal. Common Bile Duct measures 4 mm. Free fluid: None. Additional Findings: None. IMPRESSION: 1. Diffuse liver disease, fatty infiltration. Signer Name: Matheus Lynne MD Signed: 03/21/2021 4:42 PM Workstation Name: [id number]
[2021-03-21] MEDS: PRAVASTATIN 80 MG TAB PO SCH (21:49)
[2021-03-22 05:47] LABS: Basophils % (Auto) 0.2 % (0.0-1.8); Eosinophils # (Auto) 0.1 K/mm3 (0.0-0.4); Hematocrit 40.1 % (35.5-45.6); Lymphocytes % (Auto) 10.6 % (13.4-35.0); Mean Corpuscular HGB Conc 35 % (32-34); Mean Corpuscular Volume 95 fl (84-94); Monocytes # (Auto) 0.7 K/mm3 (0.0-0.8); Monocytes % (Auto) 7.4 % (0.0-7.3); Platelet Count 257 K/mm3 (140-440); Red Blood Count 4.22 M/mm3 (3.65-5.03); Red Cell Distribution Width 12.7 % (13.2-15.2)
[2021-03-22 05:55] LABS: Alanine Aminotransferase 23 units/L (7-56); Albumin 4.2 g/dL (3.9-5); BUN/Creatinine Ratio 12; Blood Urea Nitrogen 11 mg/dL (9-20); Calcium 8.5 mg/dL (8.4-10.2); Hemolysis Index 11
[2021-03-22] MEDS: MORPHINE 4 MG/1 ML INJ IV PRN ×3 (06:12→21:01)
[2021-03-22] MEDS: D5W/0.45% NACL 1,000 ML IV SCH ×2 (06:28→18:03)
--- NOTE | 2021-03-22 09:59 | XRay Report ---
ABDOMEN 2 VIEWS INDICATION / CLINICAL INFORMATION: nausea and vomiting. COMPARISON: None available. FINDINGS: Nasogastric tubes in good position with its tip in the stomach BOWEL: No dilated bowel. FREE AIR / EXTRALUMINAL GAS: None seen. CALCIFICATIONS: No significant abnormal calcifications. ADDITIONAL FINDINGS: None. LUNGS: Visualized lungs show no significant abnormality. SKELETAL STRUCTURES: No significant abnormality. IMPRESSION: 1. No significant abnormality. Signer Name: Matheus Lynne MD Signed: 03/22/2021 9:55 AM Workstation Name: [email or web address]
[2021-03-22] MEDS ORDERED: FLUoxetine 20 MG CAP PO SCH (10:00)
[2021-03-22] MEDS ORDERED: METOPROLOL SUCCINATE XL 25 MG TAB PO SCH (10:00)
[2021-03-22] MEDS ORDERED: DILTIAZEM 120 MG PO SCH (10:00)
[2021-03-22] MEDS ORDERED: FENOFIBRATE 48 MG TAB PO SCH (10:00)
[2021-03-22] MEDS ORDERED: NON-FORMULARY EACH (Simvastatin [Simvastatin] 40 MG Tablet) PO SCH (10:00)
[2021-03-22] MEDS ORDERED: METOPROLOL TARTRATE 25 MG TAB PO SCH (10:00)
[2021-03-22] MEDS ORDERED: FLUOXETINE HCL 40 MG PO SCH (10:00)
[2021-03-22] MEDS: dilTIAZem CD 120 MG CAP PO SCH (10:03)
--- NOTE | 2021-03-22 11:36 | Progress Note ---
Assessment and Plan Assessment and plan: # Small bowel obstruction Bowel rest IV fluid resuscitation therapy NPO except for ice chips General surgery consulted US abdomen - no cholelithiasis #SIRS Empirical IV antibiotic therapy, IV fluid resuscitation therapy, CBC, repeat CBC in a.m. #HTN Monitor blood pressure every shift, continue Medical management #HLD Low-cholesterol diet, supportive care. #DVT ppx Heparin SC History Interval history: 03/22. Patient seen and examined at bedside. Has NG tube connected to suction. Surgery following. Hospitalist Physical - Physical exam Narrative exam: VITAL SIGNS: Reviewed. GENERAL: Awake HEAD: No signs of head trauma. EYES: Pupils are equal. Extraocular motions intact. MOUTH: Oropharynx is normal. NECK: No adenopathy, no JVD. CHEST: Chest with diminished breath sounds bilaterally. No wheezes, rales, or rhonchi. CARDIAC: normal S1 and S2, without murmurs, gallops, or rubs. ABDOMEN: Soft, BS + MUSCULOSKELETAL: No edema NEUROLOGIC EXAM: Alert and oriented x3. No focal neurologic deficits SKIN: No obvious lesions - Constitutional Vitals: Temp Pulse Resp BP Pulse Ox 98.3 F 78 16 136/91 96 03/22/21 11:20 03/22/21 11:20 03/22/21 11:20 03/22/21 11:20 03/22/21 11:20 General appearance: Present: mild distress Results - Labs CBC & Chem 7: 03/22/21 05:19 03/22/21 05:19 Labs: Laboratory Last Values WBC 9.5 K/mm3 (4.5-11.0) 03/22/21 05:19 RBC 4.22 M/mm3 (3.65-5.03) 03/22/21 05:19 Hgb 14.0 gm/dl (11.8-15.2) 03/22/21 05:19 Hct 40.1 % (35.5-45.6) 03/22/21 05:19 MCV 95 fl (84-94) H 03/22/21 05:19 MCH 33 pg (28-32) H 03/22/21 05:19 MCHC 35 % (32-34) H 03/22/21 05:19 RDW 12.7 % (13.2-15.2) L 03/22/21 05:19 Plt Count 257 K/mm3 (140-440) 03/22/21 05:19 Lymph % (Auto) 10.6 % (13.4-35.0) L 03/22/21 05:19 [place] % (Auto) 7.4 % (0.0-7.3) H 03/22/21 05:19 Eos % (Auto) 1.0 % (0.0-4.3) 03/22/21 05:19 Baso % (Auto) 0.2 % (0.0-1.8) 03/22/21 05:19 Lymph # (Auto) 1.0 K/mm3 (1.2-5.4) L 03/22/21 05:19 [place] # (Auto) 0.7 K/mm3 (0.0-0.8) 03/22/21 05:19 Eos # (Auto) 0.1 K/mm3 (0.0-0.4) 03/22/21 05:19 Baso # (Auto) 0.0 K/mm3 (0.0-0.1) 03/22/21 05:19 Add Manual Diff Complete 03/21/21 09:07 Total Counted 100 03/21/21 09:07 Seg Neutrophils % 80.8 % (40.0-70.0) H 03/22/21 05:19 Seg Neuts % (Manual) 93.0 % (40.0-70.0) H 03/21/21 09:07 Lymphocytes % (Manual) 3.0 % (13.4-35.0) L 03/21/21 09:07 Monocytes % (Manual) 4.0 % (0.0-7.3) 03/21/21 09:07 Nucleated RBC % Not Reportable 03/21/21 09:07 Seg Neutrophils # 7.7 K/mm3 (1.8-7.7) 03/22/21 05:19 Seg Neutrophils # Man 11.9 K/mm3 (1.8-7.7) H 03/21/21 09:07 Band Neutrophils # 0.0 K/mm3 03/21/21 09:07 Lymphocytes # (Manual) 0.4 K/mm3 (1.2-5.4) L 03/21/21 09:07 Abs React Lymphs (Man) 0.0 K/mm3 03/21/21 09:07 Monocytes # (Manual) 0.5 K/mm3 (0.0-0.8) 03/21/21 09:07 Eosinophils # (Manual) 0.0 K/mm3 (0.0-0.4) 03/21/21 09:07 Basophils # (Manual) 0.0 K/mm3 (0.0-0.1) 03/21/21 09:07 Metamyelocytes # 0.0 K/mm3 03/21/21 09:07 Myelocytes # 0.0 K/mm3 03/21/21 09:07 Promyelocytes # 0.0 K/mm3 03/21/21 09:07 Blast Cells # 0.0 K/mm3 03/21/21 09:07 WBC Morphology Not Reportable 03/21/21 09:07 Hypersegmented Neuts Not Reportable 03/21/21 09:07 Hyposegmented Neuts Not Reportable 03/21/21 09:07 Hypogranular Neuts Not Reportable 03/21/21 09:07 Smudge Cells Not Reportable 03/21/21 09:07 Toxic Granulation Not Reportable 03/21/21 09:07 Toxic Vacuolation Not Reportable 03/21/21 09:07 Dohle Bodies Not Reportable 03/21/21 09:07 Pelger-Huet Anomaly Not Reportable 03/21/21 09:07 Pk Rods Not Reportable 03/21/21 09:07 Platelet Estimate Consistent w auto 03/21/21 09:07 Clumped Platelets Not Reportable 03/21/21 09:07 Plt Clumps, EDTA Not Reportable 03/21/21 09:07 Large Platelets Not Reportable 03/21/21 09:07 Giant Platelets Not Reportable 03/21/21 09:07 Platelet Satelliting Not Reportable 03/21/21 09:07 Plt Morphology Comment Not Reportable 03/21/21 09:07 RBC Morphology Normal 03/21/21 09:07 Dimorphic RBCs Not Reportable 03/21/21 09:07 Polychromasia Not Reportable 03/21/21 09:07 Hypochromasia Not Reportable 03/21/21 09:07 Poikilocytosis Not Reportable 03/21/21 09:07 Anisocytosis Not Reportable 03/21/21 09:07 Microcytosis Not Reportable 03/21/21 09:07 Macrocytosis Not Reportable 03/21/21 09:07 Spherocytes Not Reportable 03/21/21 09:07 Pappenheimer Bodies Not Reportable 03/21/21 09:07 Sickle Cells Not Reportable 03/21/21 09:07 Target Cells Not Reportable 03/21/21 09:07 Tear Drop Cells Not Reportable 03/21/21 09:07 Ovalocytes Not Reportable 03/21/21 09:07 Helmet Cells Not Reportable 03/21/21 09:07 Goodson-Stanberry Bodies Not Reportable 03/21/21 09:07 [place] Rings Not Reportable 03/21/21 09:07 Devora Cells Not Reportable 03/21/21 09:07 Bite Cells Not Reportable 03/21/21 09:07 Crenated Cell Not Reportable 03/21/21 09:07 Elliptocytes Not Reportable 03/21/21 09:07 Acanthocytes (Spur) Not Reportable 03/21/21 09:07 Rouleaux Not Reportable 03/21/21 09:07 Hemoglobin C Crystals Not Reportable 03/21/21 09:07 Schistocytes Not Reportable 03/21/21 09:07 Malaria parasites Not Reportable 03/21/21 09:07 Thomas Bodies Not Reportable 03/21/21 09:07 Hem Pathologist Commnt No 03/21/21 09:07 Sodium 141 mmol/L (137-145) 03/22/21 05:19 Potassium 3.9 mmol/L (3.6-5.0) 03/22/21 05:19 Chloride 104.6 mmol/L (98-107) 03/22/21 05:19 Carbon Dioxide 26 mmol/L (22-30) 03/22/21 05:19 Anion Gap 14 mmol/L 03/22/21 05:19 BUN 11 mg/dL (9-20) 03/22/21 05:19 Creatinine 0.9 mg/dL (0.8-1.3) 03/22/21 05:19 Estimated GFR > 60 ml/min 03/22/21 05:19 BUN/Creatinine Ratio 12 % 03/22/21 05:19 Glucose 100 mg/dL (75-100) 03/22/21 05:19 Calcium 8.5 mg/dL (8.4-10.2) 03/22/21 05:19 Total Bilirubin 0.80 mg/dL (0.1-1.2) 03/22/21 05:19 AST 16 units/L (5-40) 03/22/21 05:19 ALT 23 units/L (7-56) 03/22/21 05:19 Alkaline Phosphatase 85 units/L (35-129) 03/22/21 05:19 Total Protein 7.0 g/dL (6.3-8.2) 03/22/21 05:19 Albumin 4.2 g/dL (3.9-5) 03/22/21 05:19 Albumin/Globulin Ratio 1.5 % 03/22/21 05:19 Lipase 30 units/L (13-60) 03/21/21 09:07 Urine Color Yellow (Yellow) 03/21/21 14:28 Urine Turbidity Hazy (Clear) 03/21/21 14:28 Urine pH 8.0 (5.0-7.0) H 03/21/21 14:28 Ur Specific [place] 1.021 (1.003-1.030) 03/21/21 14:28 Urine Protein 30 mg/dl mg/dL (Negative) 03/21/21 14:28 Urine Glucose (UA) Neg mg/dL (Negative) 03/21/21 14:28 Urine Ketones Tr mg/dL (Negative) 03/21/21 14:28 Urine Blood Neg (Negative) 03/21/21 14:28 Urine Nitrite Neg (Negative) 03/21/21 14:28 Urine Bilirubin Neg (Negative) 03/21/21 14:28 Urine Urobilinogen < 2.0 mg/dL (<2.0) 03/21/21 14:28 Ur Leukocyte Esterase Neg (Negative) 03/21/21 14:28 Urine WBC (Auto) 6.0 /HPF (0.0-6.0) 03/21/21 14:28 Urine RBC (Auto) 7.0 /HPF (0.0-6.0) 03/21/21 14:28 U Epithel Cells (Auto) < 1.0 /HPF (0-13.0) 03/21/21 14:28 Amorphous Crystals Few 03/21/21 14:28 Urine Mucus 3+ /HPF 03/21/21 14:28 Singh/IV: Voiding Method Urinal Active Medications - Current Medications Current Medications: Generic Name Dose Route Start Last Admin Trade Name Freq PRN Reason Stop Dose Admin Acetaminophen 650 mg 03/21/21 11:41 Acetaminophen 325 Mg Tab PO Q4H PRN Pain MILD(1-3)/Fever >100.5/BILLS Diltiazem HCl 120 mg 03/22/21 10:00 03/22/21 10:03 Diltiazem Cd 120 Mg Cap PO 120 mg QDAY MUSHTAQ Administration Dextrose/Sodium Chloride 1,000 mls @ 100 mls/hr 03/22/21 07:00 03/22/21 06:28 D5/0.45ns IV 100 mls/hr DIRECT MUSHTAQ Administration Morphine Sulfate 2 mg 03/21/21 11:41 03/22/21 06:12 Morphine 4 Mg/1 Ml Inj IV 2 mg Q6H PRN Administration Pain , Severe (7-10) Ondansetron HCl 4 mg 03/21/21 11:41 03/21/21 14:40 Ondansetron 4 Mg/2 Ml Inj IV 4 mg Q8H PRN Administration Nausea And Vomiting Pravastatin Sodium 80 mg 03/21/21 22:00 03/21/21 21:49 Pravastatin 80 Mg Tab PO Not Given QHS MUSHTAQ Sodium Chloride 10 ml 03/21/21 22:00 03/22/21 10:04 Sodium Chloride 0.9% 10 Ml Flush Syringe IV 10 ml BID MUSHTAQ Administration Sodium Chloride 10 ml 03/21/21 11:41 03/22/21 06:13 Sodium Chloride 0.9% 10 Ml Flush Syringe IV 10 ml PRN PRN Administration LINE FLUSH
--- NOTE | 2021-03-22 18:54 | Progress Note ---
Assessment and Plan - Patient Problems (1) Small bowel obstruction Current Visit: Yes Status: Acute Plan to address problem: 1) Improving 2) DC NG 3) CLD Subjective Date of service: 03/22/21 Patient Reports: Positive: no new complaints, feels better, flatus, no bowel movement (Denies further abdominal pain.) Objective Vital Signs - 12hr 03/22/21 03/22/21 03/22/21 09:22 10:03 11:20 Temperature 98.3 F Pulse Rate 89 78 Respiratory 16 Rate Blood Pressure 110/79 Blood Pressure 136/91 [Right] O2 Sat by Pulse 97 96 Oximetry 03/22/21 16:25 Temperature 98.6 F Pulse Rate 75 Respiratory 17 Rate Blood Pressure Blood Pressure 135/86 [Right] O2 Sat by Pulse 98 Oximetry - Abdomen [id number] 4, [id number] 6, [id number] 8 Hernia: none - Labs 03/22/21 05:19 03/22/21 05:19 Diabetes panel 03/22/21 Range/Units 05:19 Sodium 141 (137-145) mmol/L Potassium 3.9 (3.6-5.0) mmol/L Chloride 104.6 (98-107) mmol/L Carbon Dioxide 26 (22-30) mmol/L BUN 11 (9-20) mg/dL Creatinine 0.9 (0.8-1.3) mg/dL Glucose 100 (75-100) mg/dL Calcium 8.5 (8.4-10.2) mg/dL AST 16 (5-40) units/L ALT 23 (7-56) units/L Alkaline Phosphatase 85 (35-129) units/L Total Protein 7.0 (6.3-8.2) g/dL Albumin 4.2 (3.9-5) g/dL Calcium panel 03/22/21 Range/Units 05:19 Calcium 8.5 (8.4-10.2) mg/dL Albumin 4.2 (3.9-5) g/dL Pituitary panel 03/22/21 Range/Units 05:19 Sodium 141 (137-145) mmol/L Potassium 3.9 (3.6-5.0) mmol/L Chloride 104.6 (98-107) mmol/L Carbon Dioxide 26 (22-30) mmol/L BUN 11 (9-20) mg/dL Creatinine 0.9 (0.8-1.3) mg/dL Glucose 100 (75-100) mg/dL Calcium 8.5 (8.4-10.2) mg/dL Adrenal panel 03/22/21 Range/Units 05:19 Sodium 141 (137-145) mmol/L Potassium 3.9 (3.6-5.0) mmol/L Chloride 104.6 (98-107) mmol/L Carbon Dioxide 26 (22-30) mmol/L BUN 11 (9-20) mg/dL Creatinine 0.9 (0.8-1.3) mg/dL Glucose 100 (75-100) mg/dL Calcium 8.5 (8.4-10.2) mg/dL Total Bilirubin 0.80 (0.1-1.2) mg/dL AST 16 (5-40) units/L ALT 23 (7-56) units/L Alkaline Phosphatase 85 (35-129) units/L Total Protein 7.0 (6.3-8.2) g/dL Albumin 4.2 (3.9-5) g/dL - Imaging Abdominal x-ray: report reviewed US - abdomen: report reviewed
[2021-03-22] MEDS: PRAVASTATIN 80 MG TAB PO SCH (21:01)
[2021-03-23] MEDS: D5W/0.45% NACL 1,000 ML IV SCH ×2 (04:19→20:24)
[2021-03-23] MEDS: MORPHINE 4 MG/1 ML INJ IV PRN ×3 (04:19→20:22)
--- NOTE | 2021-03-23 08:39 | Progress Note ---
Assessment and Plan Assessment and plan: Small bowel obstruction HTN HLD DVT ppx 03/22. Patient seen and examined at bedside. Has NG tube connected to suction. Surgery following. 03/23. Continue conservative management with bowel rest per surgery recommendations. Continue IV fluid resuscitation. General surgery potentially to pull NG tube today. Advance diet as tolerated. Ultrasound of the abdomen revealed no cholelithiasis. Continue antihypertensive medications. History Interval history: No new issues overnight Hospitalist Physical - Constitutional Vitals: Temp Pulse Resp BP Pulse Ox 100.0 F H 87 20 120/70 97 03/23/21 04:57 03/23/21 04:57 03/23/21 04:57 03/23/21 04:57 03/23/21 04:57 General appearance: Present: mild distress - EENT Eyes: Present: PERRL, EOM intact ENT: hearing intact, clear oral mucosa, dentition normal - Neck Neck: Present: supple, normal ROM - Respiratory Respiratory effort: normal Respiratory: bilateral: CTA - Cardiovascular Rhythm: regular Heart Sounds: Present: S1 & S2. Absent: gallop, rub - Extremities Extremities: no ischemia, No edema, Full ROM - Abdominal General gastrointestinal: soft, non-tender, non-distended, normal bowel sounds - Integumentary Integumentary: Present: clear, warm, dry - Neurologic Neurologic: CNII-XII intact, moves all extremities Results - Labs CBC & Chem 7: 03/22/21 05:19 03/22/21 05:19 Labs: Laboratory Last Values WBC 9.5 K/mm3 (4.5-11.0) 03/22/21 05:19 RBC 4.22 M/mm3 (3.65-5.03) 03/22/21 05:19 Hgb 14.0 gm/dl (11.8-15.2) 03/22/21 05:19 Hct 40.1 % (35.5-45.6) 03/22/21 05:19 MCV 95 fl (84-94) H 03/22/21 05:19 MCH 33 pg (28-32) H 03/22/21 05:19 MCHC 35 % (32-34) H 03/22/21 05:19 RDW 12.7 % (13.2-15.2) L 03/22/21 05:19 Plt Count 257 K/mm3 (140-440) 03/22/21 05:19 Lymph % (Auto) 10.6 % (13.4-35.0) L 03/22/21 05:19 [place] % (Auto) 7.4 % (0.0-7.3) H 03/22/21 05:19 Eos % (Auto) 1.0 % (0.0-4.3) 03/22/21 05:19 Baso % (Auto) 0.2 % (0.0-1.8) 03/22/21 05:19 Lymph # (Auto) 1.0 K/mm3 (1.2-5.4) L 03/22/21 05:19 [place]ully # (Auto) 0.7 K/mm3 (0.0-0.8) 03/22/21 05:19 Eos # (Auto) 0.1 K/mm3 (0.0-0.4) 03/22/21 05:19 Baso # (Auto) 0.0 K/mm3 (0.0-0.1) 03/22/21 05:19 Add Manual Diff Complete 03/21/21 09:07 Total Counted 100 03/21/21 09:07 Seg Neutrophils % 80.8 % (40.0-70.0) H 03/22/21 05:19 Seg Neuts % (Manual) 93.0 % (40.0-70.0) H 03/21/21 09:07 Lymphocytes % (Manual) 3.0 % (13.4-35.0) L 03/21/21 09:07 Monocytes % (Manual) 4.0 % (0.0-7.3) 03/21/21 09:07 Nucleated RBC % Not Reportable 03/21/21 09:07 Seg Neutrophils # 7.7 K/mm3 (1.8-7.7) 03/22/21 05:19 Seg Neutrophils # Man 11.9 K/mm3 (1.8-7.7) H 03/21/21 09:07 Band Neutrophils # 0.0 K/mm3 03/21/21 09:07 Lymphocytes # (Manual) 0.4 K/mm3 (1.2-5.4) L 03/21/21 09:07 Abs React Lymphs (Man) 0.0 K/mm3 03/21/21 09:07 Monocytes # (Manual) 0.5 K/mm3 (0.0-0.8) 03/21/21 09:07 Eosinophils # (Manual) 0.0 K/mm3 (0.0-0.4) 03/21/21 09:07 Basophils # (Manual) 0.0 K/mm3 (0.0-0.1) 03/21/21 09:07 Metamyelocytes # 0.0 K/mm3 03/21/21 09:07 Myelocytes # 0.0 K/mm3 03/21/21 09:07 Promyelocytes # 0.0 K/mm3 03/21/21 09:07 Blast Cells # 0.0 K/mm3 03/21/21 09:07 WBC Morphology Not Reportable 03/21/21 09:07 Hypersegmented Neuts Not Reportable 03/21/21 09:07 Hyposegmented Neuts Not Reportable 03/21/21 09:07 Hypogranular Neuts Not Reportable 03/21/21 09:07 Smudge Cells Not Reportable 03/21/21 09:07 Toxic Granulation Not Reportable 03/21/21 09:07 Toxic Vacuolation Not Reportable 03/21/21 09:07 Dohle Bodies Not Reportable 03/21/21 09:07 Pelger-Huet Anomaly Not Reportable 03/21/21 09:07 Pk Rods Not Reportable 03/21/21 09:07 Platelet Estimate Consistent w auto 03/21/21 09:07 Clumped Platelets Not Reportable 03/21/21 09:07 Plt Clumps, EDTA Not Reportable 03/21/21 09:07 Large Platelets Not Reportable 03/21/21 09:07 Giant Platelets Not Reportable 03/21/21 09:07 Platelet Satelliting Not Reportable 03/21/21 09:07 Plt Morphology Comment Not Reportable 03/21/21 09:07 RBC Morphology Normal 03/21/21 09:07 Dimorphic RBCs Not Reportable 03/21/21 09:07 Polychromasia Not Reportable 03/21/21 09:07 Hypochromasia Not Reportable 03/21/21 09:07 Poikilocytosis Not Reportable 03/21/21 09:07 Anisocytosis Not Reportable 03/21/21 09:07 Microcytosis Not Reportable 03/21/21 09:07 Macrocytosis Not Reportable 03/21/21 09:07 Spherocytes Not Reportable 03/21/21 09:07 Pappenheimer Bodies Not Reportable 03/21/21 09:07 Sickle Cells Not Reportable 03/21/21 09:07 Target Cells Not Reportable 03/21/21 09:07 Tear Drop Cells Not Reportable 03/21/21 09:07 Ovalocytes Not Reportable 03/21/21 09:07 Helmet Cells Not Reportable 03/21/21 09:07 [place] Bodies Not Reportable 03/21/21 09:07 Graff Rings Not Reportable 03/21/21 09:07 [place] Cells Not Reportable 03/21/21 09:07 Bite Cells Not Reportable 03/21/21 09:07 Crenated Cell Not Reportable 03/21/21 09:07 Elliptocytes Not Reportable 03/21/21 09:07 Acanthocytes (Spur) Not Reportable 03/21/21 09:07 Rouleaux Not Reportable 03/21/21 09:07 Hemoglobin C Crystals Not Reportable 03/21/21 09:07 Schistocytes Not Reportable 03/21/21 09:07 Malaria parasites Not Reportable 03/21/21 09:07 Thomas Bodies Not Reportable 03/21/21 09:07 Hem Pathologist Commnt No 03/21/21 09:07 Sodium 141 mmol/L (137-145) 03/22/21 05:19 Potassium 3.9 mmol/L (3.6-5.0) 03/22/21 05:19 Chloride 104.6 mmol/L (98-107) 03/22/21 05:19 Carbon Dioxide 26 mmol/L (22-30) 03/22/21 05:19 Anion Gap 14 mmol/L 03/22/21 05:19 BUN 11 mg/dL (9-20) 03/22/21 05:19 Creatinine 0.9 mg/dL (0.8-1.3) 03/22/21 05:19 Estimated GFR > 60 ml/min 03/22/21 05:19 BUN/Creatinine Ratio 12 % 03/22/21 05:19 Glucose 100 mg/dL (75-100) 03/22/21 05:19 Calcium 8.5 mg/dL (8.4-10.2) 03/22/21 05:19 Total Bilirubin 0.80 mg/dL (0.1-1.2) 03/22/21 05:19 AST 16 units/L (5-40) 03/22/21 05:19 ALT 23 units/L (7-56) 03/22/21 05:19 Alkaline Phosphatase 85 units/L (35-129) 03/22/21 05:19 Total Protein 7.0 g/dL (6.3-8.2) 03/22/21 05:19 Albumin 4.2 g/dL (3.9-5) 03/22/21 05:19 Albumin/Globulin Ratio 1.5 % 03/22/21 05:19 Lipase 30 units/L (13-60) 03/21/21 09:07 Urine Color Yellow (Yellow) 03/21/21 14:28 Urine Turbidity Hazy (Clear) 03/21/21 14:28 Urine pH 8.0 (5.0-7.0) H 03/21/21 14:28 Ur Specific [place] 1.021 (1.003-1.030) 03/21/21 14:28 Urine Protein 30 mg/dl mg/dL (Negative) 03/21/21 14:28 Urine Glucose (UA) Neg mg/dL (Negative) 03/21/21 14:28 Urine Ketones Tr mg/dL (Negative) 03/21/21 14:28 Urine Blood Neg (Negative) 03/21/21 14:28 Urine Nitrite Neg (Negative) 03/21/21 14:28 Urine Bilirubin Neg (Negative) 03/21/21 14:28 Urine Urobilinogen < 2.0 mg/dL (<2.0) 03/21/21 14:28 Ur Leukocyte Esterase Neg (Negative) 03/21/21 14:28 Urine WBC (Auto) 6.0 /HPF (0.0-6.0) 03/21/21 14:28 Urine RBC (Auto) 7.0 /HPF (0.0-6.0) 03/21/21 14:28 U Epithel Cells (Auto) < 1.0 /HPF (0-13.0) 03/21/21 14:28 Amorphous Crystals Few 03/21/21 14:28 Urine Mucus 3+ /HPF 03/21/21 14:28 Singh/IV: Voiding Method Urinal Active Medications - Current Medications Current Medications: Generic Name Dose Route Start Last Admin Trade Name Freq PRN Reason Stop Dose Admin Acetaminophen 650 mg 03/21/21 11:41 Acetaminophen 325 Mg Tab PO Q4H PRN Pain MILD(1-3)/Fever >100.5/BILLS Diltiazem HCl 120 mg 03/22/21 10:00 03/22/21 10:03 Diltiazem Cd 120 Mg Cap PO 120 mg QDAY MUSHTAQ Administration Dextrose/Sodium Chloride 1,000 mls @ 100 mls/hr 03/22/21 07:00 03/23/21 04:19 D5/0.45ns IV 100 mls/hr DIRECT MUSHTAQ Administration Morphine Sulfate 2 mg 03/21/21 11:41 03/23/21 04:19 Morphine 4 Mg/1 Ml Inj IV 2 mg Q6H PRN Administration Pain , Severe (7-10) Ondansetron HCl 4 mg 03/21/21 11:41 03/21/21 14:40 Ondansetron 4 Mg/2 Ml Inj IV 4 mg Q8H PRN Administration Nausea And Vomiting Pravastatin Sodium 80 mg 03/21/21 22:00 03/22/21 21:01 Pravastatin 80 Mg Tab PO Not Given QHS MUSHTAQ Sodium Chloride 10 ml 03/21/21 22:00 03/22/21 21:01 Sodium Chloride 0.9% 10 Ml Flush Syringe IV 10 ml BID MUSHTAQ Administration Sodium Chloride 10 ml 03/21/21 11:41 03/22/21 06:13 Sodium Chloride 0.9% 10 Ml Flush Syringe IV 10 ml PRN PRN Administration LINE FLUSH
[2021-03-23] MEDS: ONDANSETRON 4 MG/2 ML INJ IV PRN (09:37)
[2021-03-23] MEDS: dilTIAZem CD 120 MG CAP PO SCH (10:46)
--- NOTE | 2021-03-23 14:13 | Progress Note ---
Assessment and Plan - Patient Problems (1) Small bowel obstruction Current Visit: Yes Status: Acute Plan to address problem: 1) Improving. Will advance to [facility]. Subjective Date of service: 03/23/21 Patient Reports: Positive: no new complaints, feels better, flatus Objective Vital Signs - 12hr 03/23/21 03/23/21 04:57 10:46 Temperature 100.0 F H Pulse Rate 87 87 Respiratory 20 Rate Blood Pressure 120/70 120/70 O2 Sat by Pulse 97 Oximetry - Abdomen soft, bowel sounds normal (NT, ND) - Labs 03/22/21 05:19 03/22/21 05:19
[2021-03-23] MEDS: PRAVASTATIN 80 MG TAB PO SCH (21:27)
[2021-03-24 05:08] VITALS: BP 127/77
[2021-03-24] MEDS: D5W/0.45% NACL 1,000 ML IV SCH (05:40)
--- NOTE | 2021-03-24 08:33 | Discharge Summary ---
Providers - Providers Date of Admission: 03/21/21 11:41 Date of discharge: 03/24/21 Attending physician: JASE MARCELO 03/21/21 11:27 Consult to Physician [CONS] Routine Comment: Consulting Provider: MADHURI BENNETT Physician Instructions: Reason For Exam: SBO Primary care physician: NING MORENO Hospitalization Reason for admission: sbo Condition: Serious Hospital course: 56 YO Male with HLD, HTN presents to ED with complaints of abdominal pain that began at approximately 0330 [employer]. Patient stated that the pain awakened him from sleep. Patient reported that pain was 9/10, constant, without aggravating or alleviating factors. Patient acknowledged nausea, as well as multiple episodes of vomiting. Patient transported via private vehicle to [facility] for further care and evaluation of the aforementioned symptoms. The patient was seen and evaluated in the emergency department. Patient underwent CT scan of the abdomen and pelvis and was found to have evidence of a partial small bowel obstruction as well as laboratory findings consistent with systemic inflammatory response syndrome. Patient admitted to surgical floor with diagnosis of small bowel obstruction and initiated on bowel rest as well as IV fluid resuscitation therapy. Surgical team consulted in ED. Patient was treated conservatively with IV fluid hydration and NG tube to intermittent suction. SBO resolved with conservative management and patient was felt to have received maximal hospital benefit for discharge. Diet was advanced which the patient tolerated and thus patient will be discharged home with follow-up with surgery as an outpatient dedicated discharge time 35 minutes. Disposition: TO HOME OR SELFCARE Final Discharge Diagnosis (Prints w/discharge instructions): SBO, hypertension, hyperlipidemia Core Measure Documentation - Palliative Care Palliative Care/ Comfort Measures: Not Applicable - Core Measures Any of the following diagnoses?: none Exam - Constitutional Vitals: Temp Pulse Resp BP Pulse Ox 99.6 F 80 18 127/77 96 03/24/21 04:04 03/24/21 04:04 03/24/21 04:04 03/24/21 04:04 03/24/21 04:04 General appearance: Present: no acute distress, well-nourished - EENT Eyes: Present: PERRL ENT: hearing intact, clear oral mucosa - Neck Neck: Present: supple, normal ROM - Respiratory Respiratory effort: normal Respiratory: bilateral: CTA - Cardiovascular Heart Sounds: Present: S1 & S2. Absent: rub, click - Extremities Extremities: pulses symmetrical, No edema Peripheral Pulses: within normal limits - Abdominal General gastrointestinal: Present: soft, non-tender, non-distended, normal bowel sounds Male genitourinary: Present: normal - Integumentary Integumentary: Present: clear, warm, dry - Musculoskeletal Musculoskeletal: gait normal, strength equal bilaterally - Psychiatric Psychiatric: appropriate mood/affect, intact judgment & insight - Neurologic Neurologic: CNII-XII intact, moves all extremities Plan Activity: advance as tolerated Weight Bearing Status: Weight Bear as Tolerated Diet: regular Follow up with: NING MORENO MD [Primary Care Provider] - 3-5 Days MADHURI BENNETT MD [Staff Physician] - 7 Days
[2021-03-24] MEDS: dilTIAZem CD 120 MG CAP PO SCH (09:46)
--- NOTE | 2021-03-24 12:27 | Progress Note ---
Assessment and Plan - Patient Problems (1) Small bowel obstruction Current Visit: Yes Status: Acute Plan to address problem: 1) Okay for discharge from my perspective. 2) No Rx 3) Activity ad nay 4) Diet as tolerated 5) Pt can f/u in my office in 2 weeks. Subjective Date of service: 03/24/21 Patient Reports: Positive: no new complaints, feels better, flatus, bowel movement (Tolerating FLD. Denies abdominal pain.) Objective Vital Signs - 12hr 03/24/21 03/24/21 04:04 10:00 Temperature 99.6 F Pulse Rate 80 Respiratory 18 Rate Blood Pressure 127/77 O2 Sat by Pulse 96 98 Oximetry - Abdomen soft, bowel sounds normal (NT) - Labs 03/22/21 05:19 03/22/21 05:19
== END 2021-03-24 14:47 | disposition home or self-care (01) | DRG 389 ==
LOC: ED 08:39 → 3A 11:41
PROVIDERS: ADMIT Internal Medicine; ATTEND Hospitalist
DX: K56.609 Unspecified intestinal obstruction, unspecified as to partial versus complete obstruction (principal); R65.10 Systemic inflammatory response syndrome (SIRS) of non-infectious origin without acute organ dysfunction; E78.2 Mixed hyperlipidemia; E78.00 Pure hypercholesterolemia, unspecified; I10 Essential (primary) hypertension; Z79.899 Other long term (current) drug therapy; Z79.891 Long term (current) use of opiate analgesic; Z79.01 Long term (current) use of anticoagulants; Z83.3 Family history of diabetes mellitus; Z82.49 Family history of ischemic heart disease and other diseases of the circulatory system
CPT/HCPCS: 36415; 74019; 74177; 76705; 80053; 81001; 83690; 85007; 85025; 94640; 96361; 96374; 96375; G0378; J7070; J2270; J2405; J7030; Q9967